=== PATIENT | female | born 1970 | race Caucasian/White ===

== ENCOUNTER 2018-08-03 22:54 | Inpatient (IN) | payer OTHER ==
[~2018-08-03] VITALS: Ht 154.9 cm; Wt 63.5 kg
[~2018-08-03 22:54] MED LIST: CIPRO500 MG PO; FLAGYL500 MG PO; PYRIDIUM200 M2 PO
[2018-08-03 22:57] VITALS: BP 176/105
[2018-08-03] MEDS ORDERED: ZOLOFT25 MG PO (23:03)
[2018-08-03] MEDS ORDERED: KLONOPIN1 MG PO (23:03)
[2018-08-03] MEDS ORDERED: HYDROCHLOROTHIA25 M1 PO (23:03)
[2018-08-03 23:40] LABS: ABSOLUTE BASOPHILS 0.1 thou/uL (0.0-0.2); ABSOLUTE LYMPHOCYTES 2.2 thou/uL (0.8-5.3); ABSOLUTE MONOCYTES 1.1 thou/uL (0.0-1.2); ABSOLUTE NEUTROPHILS 11.3 thou/uL (1.6-8.1); BASOPHILS 0.6 %; EOSINOPHILS 0.1 %; HEMATOCRIT 52.9 % (37.0-47.0); HEMOGLOBIN 17.6 gm/dL (12.0-15.0); LYMPHOCYTES 14.9 %; MCH 28.1 pg (26.0-34.0); MCHC 33.3 g/dL (28.0-37.0); MCV 84.4 fL (80.0-100.0); MONOCYTES 7.6 %; MPV 8.6 fl. (7.2-11.1); NUCLEATED RBCS 0 /100WBC; PLATELET COUNT* 350 thou/uL (150-400); POLYS 76.8 %; RBC 6.27 mil/uL (4.20-5.00); RDW-CV 14.4 % (10.5-14.5); WBC 14.8 thou/uL (4.0-11.0)
[2018-08-03 23:54] LABS: ALBUMIN 3.9 g/dL (3.4-5.0); CALCIUM 9.9 mg/dL (8.5-10.1); CREATININE 0.9 mg/dL (0.6-1.3); POTASSIUM 3.6 mmol/L (3.5-5.1); TOTAL PROTEIN 8.3 g/dL (6.4-8.2)
--- NOTE | 2018-08-04 01:19 | NUR ---
DR HUMPHREYS ATTEMPTED X 2 WITHOUT SUCCESS TO ESTABLISH IV ACCESS RIGHT AC.
--- NOTE | 2018-08-04 01:44 | NUR ---
DR HUMPHREYS ATTEMPTED to establish IV access using sonogram in left AC unsuccessfull x 2
[2018-08-04 08:48] LABS: URINE BILIRUBIN NEGATIVE (Negative); URINE BLOOD TRACE (Negative); URINE CLARITY CLEAR; URINE COLOR YELLOW; URINE GLUCOSE-RANDOM NEGATIVE (Negative); URINE KETONES 1+ (Negative); URINE LEUKOCYTES-REFLEX NEGATIVE (Negative); URINE NITRITE-REFLEX NEGATIVE (Negative); URINE PROTEIN NEGATIVE (Negative); URINE SPECIFIC GRAVITY 1.025 (1.005-1.030); URINE UROBILINOGEN 0.2 E.U./dl (0.2-1.0)
[2018-08-04 08:54] LABS: AMP/METHAMP POSITIVE (Negative); BARBITURATES Negative (Negative); BENZODIAZEPINES Negative (Negative); COCAINE Negative (Negative); METHADONE Negative (Negative); OPIATES POSITIVE (Negative); PCP Negative (Negative); THC Negative (Negative)
--- NOTE | 2018-08-04 08:55 | NUR ---
INFUSION NURSE CONNIE CONTACTED TO PLACE IV LINE. CONNIE WILL BE IN TO SEE PT.
[2018-08-04 09:01] VITALS: BP 154/81
--- NOTE | 2018-08-04 10:13 | NUR ---
PT REFUSED TO HAVE LAST TROPONIN DRAWN. LAB TO CANCEL LAST ORDER
[2018-08-04 15:37] VITALS: BP 152/83
--- NOTE | 2018-08-05 10:02 | EKG ---
[place] [address] ELECTROCARDIOGRAM REPORT Name: ALEXEY MORALES Lorie Room: [address] IN [facility]#: [id number] Admission: 08/04/18 Attend Phys: Arik Brar Discharge: 08/04/18 Date of : 70 Report #: [id number] THIS REPORT FOR: //name// [facility] ED Test Date: 2018-08-03 Test Time: 23:25:58 Pat Name: ALEXEY MORALES Department: Room: [facility] Gender: F Clinical Counselor: Karen KERR : 1970 Requested By: Darcy Bianchi Order Number: [id number] MD: Rogelio Fernandez Measurements Intervals [place] Rate: 63 P: 63 PA: 129 QRS: 88 QRSD: 81 T: 130 QT: 447 QTc: 458 Interpretive Statements Sinus rhythm Left atrial enlargement Abnrm T, probable ischemia, anterolateral lds No previous ECG available for comparison Electronically Signed On 08-05-2018 10:02:35 CDT by Rogelio Fernandez [email or web address] <ELECTRONICALLY SIGNED> By: Rogelio Fernandez MD, FACC 08/05/18 1002 2325 2325 Rogelio Fernandez MD, [facility] /EPI
--- NOTE | 2018-08-05 10:03 | EKG ---
[place] [address] ELECTROCARDIOGRAM REPORT Name: ALXEEY MORALES Lorie Room: [place] [address] DIS IN [facility]#: [id number] Admission: 08/04/18 Attend Phys: Arik Brar Discharge: 08/04/18 Date of : 70 Report #: [id number] THIS REPORT FOR: //name// [facility] ED Test Date: 2018-08-04 Test Time: 06:51:28 Pat Name: ALEXEY MORALES Department: Room: [place] [address] Gender: F Contact Center Rep: MARIELA : 1970 Requested By: Darcy Bianchi Order Number: [id number] MD: Rogelio Fernandez Measurements Intervals [place] Rate: 66 P: 81 W[place]: 120 QRS: 87 QRSD: 82 T: 102 QT: 466 QTc: 489 Interpretive Statements Sinus rhythm Probable left atrial enlargement Repol abnrm, prob ischemia, anterolateral lds No previous ECG available for comparison Electronically Signed On 08-05-2018 10:03:07 CDT by Rogelio Fernandez [email or web address] <ELECTRONICALLY SIGNED> By: Rogelio Fernandez MD, FACC 08/05/18 1003 0651 0651 Rogelio Fernandez MD, [facility] /EPI
--- NOTE | 2018-08-06 18:03 | EEG ---
[address] [address] EEG STUDY REPORT Name: ALEXEY MORALES Room: [address] IN .R.#: [id number] Admission: 08/04/18 Attend Phys: Arik Brar Discharge: 08/04/18 Date of : 70 Report #: [id number] THIS REPORT FOR: //name// CC: OMAYRA physician/PCP Presotn Downing DATE OF SERVICE: 08/04/2018 This patient is being evaluated for altered mental status. EEG was done by placing the electrodes by standard 10-20 system of electrode placement. Both referential and sequential montages were used for recording. Background activity in this patient is about 8 Hz and 30 microvolt. The patient goes to sleep and that is associated with bilateral slowing and vertex sharp waves. Photic stimulation was unremarkable. Throughout the record, no active epileptiform activity was noticed. IMPRESSION: This patient's EEG is intermixed with theta range slowing on both sides. That is a nonspecific abnormality, which can occur with encephalopathy, effect of psychotropic medication, dementia, etc. Clinical correlation is recommended. <ELECTRONICALLY SIGNED> By: Elmer Arce MD 08/06/18 1803 1458 [id number] Arce MD /nt
--- NOTE | 2018-08-06 18:03 | CON ---
[address] [address] CONSULTATION Name: ALEXEY MORALES Room: [address] IN ..#: [id number] Admission: 08/04/18 Attend Phys: Arik Brar Discharge: 08/04/18 Date of : 70 Report #: [id number] THIS REPORT FOR: //name// CC: OMAYRA physician/PCP Preston Downing DATE OF SERVICE: 08/04/2018 HISTORY OF PRESENT ILLNESS: This is a 47-year-old female patient who will not provide any history. She is sleeping and she will not wake up. She will not follow any commands. As I understand intermittently, she will wake up and will ask for some time. History is from the records as well as talking to the nurses. She has a history of substance abuse and presently is not responsive. No further history can be obtained in this patient except from the records. REVIEW OF SYSTEMS: Positive for headache as well as hypertension. She does have a history of hypertension in the past. She came to the Emergency Room in police custody. She apparently has a history of a lung surgery, psoriasis, hypertension, urinary tract infection as I understand from the record. PAST MEDICAL HISTORY: Positive for drug abuse. FAMILY HISTORY: Unavailable. SOCIAL HISTORY: Positive for drug abuse. PHYSICAL EXAMINATION: She did not cooperate with examination and I made multiple attempts. She does not appear to have any meningeal sign, but she will not talk to me, respond to me. Cranial nerve examination and neuromuscular examination was attempted, but the patient did not cooperate. She does not appear to have any respiratory difficulty. Her cardiac examination is stable. Blood pressure is 152/83, respiration is 28, pulse is 61, and temperature is 99. LABORATORY DATA: White count is 14.8 and sodium is 134. Her bilirubin is 2 and troponin is trace high at 0.06. She did have a CT scan of the head and that appear unremarkable except white matter changes. IMPRESSION AND PLAN: Almost impossible because of the patient's poor cooperation. I got an EEG done and that does not show any seizure activity. I will get an MRI done. Hopefully, the patient will be more cooperative tomorrow and [place] [address] CONSULTATION Name: ALEXEY MORALES Room: [address]#: [id number] Admission: 08/04/18 Attend Phys: Arik Brar Discharge: 08/04/18 Date of : 70 Report #: [id number] Thank you very much for this referral and we will follow this patient along with you. <ELECTRONICALLY SIGNED> By: Elmer Arce MD 08/06/18 1803 1528 [id number] Arce MD /nt
== END 2018-08-04 14:50 | disposition left against medical advice (07) | DRG 92 ==
LOC: M.ERS 22:54 → M.TBA-ER 08-04 03:39
PROVIDERS: Emergency Medicine; Internal Medicine; ADMIT Internal Medicine
DX: G92 Toxic encephalopathy (principal); F11.23 Opioid dependence with withdrawal; I10 Essential (primary) hypertension; L40.9 Psoriasis, unspecified; R94.31 Abnormal electrocardiogram [ECG] [EKG]; F17.210 Nicotine dependence, cigarettes, uncomplicated; Z87.828 Personal history of other (healed) physical injury and trauma; Z79.899 Other long term (current) drug therapy; Z88.1 Allergy status to other antibiotic agents